=== PATIENT | male | born 2000 | race Asian ===

== ENCOUNTER → 2023-08-01 09:53 | Outpatient (CLI) | payer OTHER, SELFPAY ==
[2023-08-01 11:33] LABS: Add Manual Diff / Slide Review NO; Basophils Absolute Auto 100 /uL (0-100); Basophils Percent Auto 0.7 % (0-2); Eosinophils Absolute Auto 300 /uL (0-450); Eosinophils Percent Auto 2.1 % (2-4); Hematocrit 45.5 % (41-53); Hemoglobin 15.4 g/dL (13.5-17.5); Lymphocytes Absolute Auto 3000 /uL (1100-4500); Lymphocytes Percent Auto 24.3 % (25-40); Mean Corpuscular HGB Conc 33.8 % (30-36); Mean Corpuscular Hemoglobin 28.9 PG (26-34); Mean Corpuscular Volume 85.4 fL (80-100); Monocytes Absolute Auto 600 /uL (0-900); Monocytes Percent Auto 4.7 % (3-14); Neutrophils Absolute Auto 8500 /uL (1500-7000); Neutrophils Percent Auto 68.2 % (50-75); Platelet Count 334 X10^3/uL (150-400); Red Blood Cell Count 5.33 X10^6/uL (4.5-5.9); Red Cell Distribution Width 13.5 % (11.6-14.8); White Blood Cell Count 12.5 X10^3/uL (4.5-11.0)
[2023-08-01 11:44] LABS: Hemoglobin A1C% w Est Avg Glu 5.6 % (4.0-6.0)
[2023-08-01 12:15] LABS: Alanine Aminotransferase 51 IU/L (<50); Albumin 4.8 g/dL (3.5-5.0); Albumin Globulin Ratio 1.1 (1.0-2.8); Alkaline Phosphatase 77 U/L (38-126); Aspartate Aminotransferase 46 IU/L (17-59); BUN Creatinine Ratio 20.2 (6-22); Bilirubin Total 0.7 mg/dL (0.2-1.3); Blood Urea Nitrogen 19 mg/dL (9-20); Calcium 9.3 mg/dL (8.4-10.2); Carbon Dioxide 30 mmol/L (22-32); Chloride 101 mmol/L (98-107); Cholesterol 236 mg/dL (140-199); Estimated Glomerular Filt Rate > 60 mL/min (>60); Globulin 4.4 g/dL (1.7-4.1); Glucose 89 mg/dL (70-100); HDL Cholesterol 51 mg/dL (40-60); HEMOLYSIS < 15 (0-50); LDL Cholesterol Calculated 149 mg/dL (<100); Potassium 4.2 mmol/L (3.4-5.1); Sodium 140 mmol/L (137-145); Total Protein 9.2 g/dL (6.3-8.2); Triglycerides 180 mg/dL (35-150); Uric Acid 10.6 mg/dL (3.5-8.5)
[2023-08-01 12:47] LABS: TSH w/ Reflex to FT4 1.34 uIU/mL (0.47-4.68)
== END ==
PROVIDERS: PCP Family Medicine; Referring Provider Family Medicine; Visit Provider Family Medicine
DX: I10 Essential (primary) hypertension (principal); F41.9 Anxiety disorder, unspecified; Z82.69 Family history of other diseases of the musculoskeletal system and connective tissue
CPT/HCPCS: 36415; 80053; 80061; 83036; 84443; 84550; 85025

== ENCOUNTER → 2023-08-21 15:24 | Outpatient (CLI) | payer OTHER, SELFPAY ==
--- NOTE | 2023-08-21 15:25 | DI.RAD.S_ITS ---
PROCEDURE: XR CHEST 2V INDICATIONS: eval cough/chest TECHNIQUE: 2 views of the chest were acquired. COMPARISON: None. FINDINGS: Surgical changes and devices: None. Lungs and pleura: Lungs are clear. No pleural effusions or pneumothorax. Mediastinum: Mediastinal contours are normal. Heart size is normal. Bones and chest wall: No suspicious bony abnormalities. Soft tissues appear unremarkable. IMPRESSION: No acute cardiopulmonary abnormality is seen. Dictated by: Joey Jain M.D. on 08/21/2023 at 16:00 Approved by: Joey Jain M.D. on 08/21/2023 at 16:01
== END ==
PROVIDERS: PCP Family Medicine; Referring Provider Family Medicine; Visit Provider Family Medicine
DX: R05.3 Chronic cough (principal)
CPT/HCPCS: 71046

== ENCOUNTER → 2024-04-18 11:48 | Outpatient (CLI) | payer OTHER, SELFPAY ==
[2024-04-18 12:39] LABS: Hemoglobin A1C% w Est Avg Glu 5.7 % (4.0-6.0)
[2024-04-18 12:58] LABS: Alanine Aminotransferase 120 IU/L (<50); Albumin 4.5 g/dL (3.5-5.0); Albumin Globulin Ratio 1.1 (1.0-2.8); Alkaline Phosphatase 107 U/L (38-126); Aspartate Aminotransferase 114 IU/L (17-59); BUN Creatinine Ratio 17.4 (6-22); Bilirubin Total 0.4 mg/dL (0.2-1.3); Blood Urea Nitrogen 15 mg/dL (9-20); Calcium 9.7 mg/dL (8.4-10.2); Carbon Dioxide 29 mmol/L (22-32); Chloride 98 mmol/L (98-107); Cholesterol 229 mg/dL (140-199); Estimated Glomerular Filt Rate > 60 mL/min (>60); Globulin 4.1 g/dL (1.7-4.1); Glucose 193 mg/dL (70-100); HDL Cholesterol 44 mg/dL (40-60); HEMOLYSIS < 15 (0-50); LDL Cholesterol Calculated 146 mg/dL (<100); Potassium 4.3 mmol/L (3.4-5.1); Sodium 136 mmol/L (137-145); Total Protein 8.6 g/dL (6.3-8.2); Triglycerides 194 mg/dL (35-150); Uric Acid 8.6 mg/dL (3.5-8.5)
[2024-04-18 13:29] LABS: Cortisol Random 9.25 ug/dL
[2024-04-18 13:32] LABS: TSH w/ Reflex to FT4 2.71 uIU/mL (0.47-4.68)
[2024-04-28 10:39] LABS: Percent Free Testosterone 2.39 % (1.50-4.20); Testosterone Free 2.99 ng/dL (5.00-21.00)
== END ==
PROVIDERS: PCP Family Medicine; Referring Provider Family Medicine; Visit Provider Family Medicine
DX: F32.9 Major depressive disorder, single episode, unspecified (principal); E78.5 Hyperlipidemia, unspecified; M10.9 Gout, unspecified; I10 Essential (primary) hypertension; Z83.3 Family history of diabetes mellitus; E66.9 Obesity, unspecified; G47.30 Sleep apnea, unspecified; R00.0 Tachycardia, unspecified
CPT/HCPCS: 36415; 80053; 80061; 82533; 83036; 83835; 84402; 84403; 84443; 84550

== ENCOUNTER → 2024-04-21 08:36 | Outpatient (CLI) | payer OTHER, SELFPAY | PROVIDERS: PCP Family Medicine; Referring Provider Family Medicine; Visit Provider Family Medicine | DX: E66.9 Obesity, unspecified (principal); G47.30 Sleep apnea, unspecified; R00.0 Tachycardia, unspecified; I10 Essential (primary) hypertension; M10.9 Gout, unspecified | CPT/HCPCS: 83835 ==

== ENCOUNTER → 2024-05-08 13:19 | Outpatient (CLI) | payer OTHER, SELFPAY ==
--- NOTE | 2024-05-08 13:21 | DI.MRI.S_ITS ---
PROCEDURE: MR ABDOMEN ADRENAL PROTOCOL INDICATIONS: Obesity, tachycardia, low testosterone, hypertension TECHNIQUE: Coronal HASTE, axial 2-D FLASH in- and [id number] with subtractions from the hepatic dome to the iliac crests. COMPARISON: None. FINDINGS: Image quality: Diagnostic. Adrenal Glands: No adrenal nodules. OTHER: Lung bases: Unremarkable. Liver: No solid mass. Hepatic steatosis. Gallbladder: No gallstones or wall thickening. Biliary ducts: No biliary dilation. Pancreas: No ductal dilation. Spleen: Mild splenomegaly measuring 13.8 cm. Kidneys and Ureters: No hydronephrosis. No solid mass. No complex renal cystic lesion which requires follow up. Stomach and Bowel: Normal colonic caliber, without significant wall thickening. Normal appendix. Peritoneum: No abnormal intraperitoneal fluid. No free air. Ventral Wall: No hernia. Abdominal Nodes: No retroperitoneal or mesenteric adenopathy by size criteria. Vessels: Aorta and inferior vena cava are normal in size. Pelvis: No pelvic mass. Bones: No aggressive osseous abnormality. IMPRESSION: 1. No adrenal nodule. 2. Hepatic steatosis. 3. No biliary or pancreatic ductal dilatation. No free fluid. Dictated by: Clarence Aguilar M.D. on 05/08/2024 at 21:44 Approved by: Clarence Aguilar M.D. on 05/08/2024 at 21:48
== END ==
PROVIDERS: PCP Family Medicine; Referring Provider Family Medicine; Visit Provider Family Medicine
DX: K76.0 Fatty (change of) liver, not elsewhere classified (principal); R16.1 Splenomegaly, not elsewhere classified; E66.813 Obesity, class 3; E66.01 Morbid (severe) obesity due to excess calories; Z68.43 Body mass index [BMI] 50.0-59.9, adult; R00.0 Tachycardia, unspecified; I10 Essential (primary) hypertension; R79.89 Other specified abnormal findings of blood chemistry; R40.0 Somnolence; F51.01 Primary insomnia
CPT/HCPCS: 74181

== ENCOUNTER → 2024-06-04 07:27 | Outpatient (CLI) | payer OTHER, SELFPAY ==
--- NOTE | 2024-06-04 07:28 | DI.ECHO.S_ITS ---
[facility] : : [address] : : [place] : : [id number] : : Phone: [phone] Echocardiogram Report + + :Name: CARLOS ENRIQUE AGUIRRE Study Date: 06/04/2024 Height: 64 in : :Hospital ReadingLocation: Weight: 323 lb : : Gender: Male BSA: 2.4 m2 : :: 2000 Age: 24 yrs BP: 180/116 mmHg: :Reason For Study: SINUS TACHYCARDIA : :Ordering Physician: DOE, : :TERENCE Performed By: Truman Deutsch : :Referring: TERENCE IYER : + + Interpretation Summary Technically difficult study due patient's body habitus. 1) Normal left ventricular thickness, size, wall motion, and systolic function (EF 60-65%). 2) Normal right ventricular size and function. 3) No significant valvular abnormalities. 4) No prior Echo available for comparison. Procedure: A two-dimensional transthoracic echocardiogram with color flow and Doppler was performed. The study quality was technically difficult. There is no prior echocardiogram noted for this patient. The patient was in sinus tachycardia with heart rates between 89-107 bpm during the exam. Left Ventricle: The left ventricle is normal in size and wall thickness. There is no ventricular septal defect visualized. The ejection fraction is estimated to be 60-65%. There are no focal wall motion abnormalities. Diastolic parameters suggest probable normal left ventricular diastolic function and normal filling pressures. Right Ventricle: The right ventricle is normal in size and function. Atria: The left atrial size is normal. Right atrial size is normal. There is no Doppler evidence for an interatrial shunt. Mitral Valve: The mitral valve leaflets appear normal. There is no evidence of stenosis, fluttering, or prolapse. There is no mitral regurgitation noted. Aortic Valve: The aortic valve is grossly normal. The aortic valve opens well. There is no aortic valve stenosis. No aortic regurgitation is present. Tricuspid Valve: The tricuspid valve is normal in structure and function. No tricuspid regurgitation. Pulmonary artery pressures cannot be estimated because of the lack of a measurable TR jet velocity. Pulmonic Valve: The pulmonic valve is not well seen, but is grossly normal. There is trace pulmonic regurgitation. Great Vessels: The aortic root is normal size. The dimensions of the ascending aorta are normal. The pulmonary artery is not well visualized, but is probably normal size. The IVC is of normal diameter and collapses greater than 50% with a sniff. This suggests a low right atrial pressure of 3 mm Hg. Pericardium/ Pleura There is no pericardial effusion. MMode/2D Measurements & Calculations LVIDd: 4.9 cm LVOT diam: 2.2 cm LVIDs: 3.0 cm Ao root diam: 3.1 cm FS: 38.3 % asc Aorta Diam: 3.1 cm EPSS: 0.55 cm Ao Arch Diam (Prox Trans): 1.7 cm IVSd: 1.2 cm LVPWd: 1.1 cm LV muñoz. diameter/BSA (cm/m^2): 2.0 LV sys. diameter/BSA (cm/m^2): 1.2 LA A2 area: 20.8 cm2 RA long axis: 4.1 cm LA A4 area: 17.6 cm2 RA area: 11.8 cm2 LA length (vol): 5.5 cm RA vol: 29.2 ml LA vol: 56.1 ml RA : 12.2 ml/m2 LA vol index: 23.4 ml/m2 IVC diam: 1.0 cm RVD1 (basal): 3.8 cm RVD2 (mid): 2.8 cm TAPSE: 1.9 cm Doppler Measurements & Calculations Ao V2 max: 153.0 cm/sec LVOT Max Jeffrey: 120.6 cm/sec Ao V2 mean: 105.8 cm/sec LV V1 max P.8 mmHg Ao max P.4 mmHg LV V1 VTI: 24.0 cm Ao mean P.0 mmHg DARÍO(I,D): 3.1 cm2 Ao V2 VTI: 29.4 cm DARÍO(V,D): 3.0 cm2 sev ratio: 0.82 DARÍO indexed to BSA (cm^2/m^2): 1.3 MV E max jeffrey: 118.5 cm/sec PA V2 max: 135.6 cm/sec MV A max jeffrey: 61.0 cm/sec PA V2 mean: 97.7 cm/sec MV E/A: 1.9 PA mean P.2 mmHg Med Peak E' Jeffrey: 9.5 cm/sec PA pr(Accel): 65.3 mmHg E/E' med: 12.5 Lat Peak E' Jeffrey: 11.7 cm/sec E/E' lat: 10.1 E/e' average: 11.3 MV dec time: 0.19 sec SV(LVOT): 90.2 ml Reading Physician:12:50 PM
== END ==
PROVIDERS: PCP Family Medicine; Referring Provider Internal Medicine Cardiovascular Disease; Visit Provider Internal Medicine Cardiovascular Disease
DX: R00.0 Tachycardia, unspecified (principal)
CPT/HCPCS: 93306

== ENCOUNTER → 2024-09-02 07:24 | Outpatient (CLI) | payer OTHER, SELFPAY ==
--- NOTE | 2024-09-02 08:01 | DIAB.MNT ---
Initial Diabetes Medical Nutrition Therapy Assessment Name: Hermelindo Wharton Date: 09/02/24 Time: 8-850a Dx: Type II Diabetes Provider: Binh Preferred Learning Style: Watching, reading, doing Hermelindo presents for initial Dm visit. Endorses FH of Dm with parternal hx (dad, aunt, both grandparents). No recent hgA1c >6.5%. Last labs were reportedly not fasting. Sees Dr. Iyer in cardiology, who seems to be concerned about tachycardia per report. Taking tirzepatide, which has reduced his appetite. Less emotional eating. Sees therapy, which is also helpful. Weight loss has plateaued a bit per report. Wants some nutrition education and support. No SE with GLP1 although does report some fatigue with initial day/injection. Takes injection Sunday afternoons to avoid fatigue at work. Started GLP1 in April 2024. Reports limited ability to prepare foods at this time due to living in his car and at a friend's home. Reports concerns for his job to be dissolved by end of the year. has concerns about losing healthcare coverage. Sometimes goes to the grocery store for a banana. States he would like to reduce soda intake, but does not like most sf beverages and tends to gag on water per report. Sometimes has a hard time accessing enough of the sf peach tea, so substitutes soda. Diet Recall: soda or sf tea 1230p: bagel sandwich or toast with cream cheese and butter x2 (at [facility]) 5-9p: Nothing OR 20 chicken nuggets +/- large shore HS: nothing or candy No water soda 16-24oz diet peach tea x 32oz Tries to avoid eating after 8p Some increased reflux with GLP1. Could be exacerbated by higher fat intake foods. Anthropometrics: Ht: 64 Wt: 288# reported (last PCP 302#) 08/2024 Physical Activity: Tennis or pickle ball 1x per week, walk 3x per week for 1 hour Self-Monitoring Blood Glucose: None Diabetes Medications: 7.5mg Tirzepatide Pertinent Labs: HgA1c: 5.7% 04/2024 Past Medical History: (Last Reviewed 08/11/24 @ 13:17 by Heladio Purcell DO) Bronchitis Daytime somnolence Family history of type 2 diabetes mellitus HENRIETTA (generalized anxiety disorder) Gout Hyperlipidemia Hypertension Insomnia Left Achilles tendinitis Low testosterone in male Major depression Obesity Sleep apnea Tachycardia Trauma and stressor-related disorder Well adult exam Nutrition Rx: Plate Method Nutrition Diagnosis: - Excessive CHO intake r/t stage of change preparation and access to beverages he enjoys aeb pt report of beverage choices and diet recall - Limited access to nutrition related supplies r/t living situation not conducive to cooking aeb pt report Intervention: This participant was very receptive. Provided appropriate educational handouts. Discussed the following topics: Completed intake assessment. Discussed barriers to care. HgA1c as a screening and diagnostic tool Beverage recs and eating out strategies Recommended servings for carbohydrates at meals and snacks Ways to reduce reflux Brainstormed appropriate meal plan based on food preferences and abilities Role of physical activity State health insurance access/resources prn Created SMART goals for patient self-care and success. Goals: Reduce soda intake Choose food from grocery store for dinner If eating fast food, choose small shore or skip shore Consider discussion about reflux tx with provider/provider team Follow-up: [facility] follow-up in 3-4 weeks Jimena Lopez RDN, YRN Certified Diabetes Care and Pack Changer P: [phone] Thank you for this referral
== END ==
LOC: DIET 07:25
PROVIDERS: PCP Family Medicine; Referring Provider Family Medicine
DX: E11.9 Type 2 diabetes mellitus without complications (principal)
CPT/HCPCS: 97802

== ENCOUNTER → 2024-10-24 09:21 | Outpatient (CLI) | payer OTHER, SELFPAY ==
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
== END ==
LOC: DIET 09:21
PROVIDERS: PCP Family Medicine; Referring Provider Family Medicine
DX: E11.9 Type 2 diabetes mellitus without complications (principal); Z79.85 Long-term (current) use of injectable non-insulin antidiabetic drugs; Z71.3 Dietary counseling and surveillance
CPT/HCPCS: 97803

== ENCOUNTER → 2024-11-10 11:08 | Outpatient (CLI) | payer OTHER, SELFPAY ==
[2024-11-10 12:17] LABS: Add Manual Diff / Slide Review NO; Hematocrit 43.9 % (41-53); Hemoglobin 14.7 g/dL (13.5-17.5); Lymphocytes Absolute Auto 3200 /uL (1100-4500); Mean Corpuscular HGB Conc 33.4 % (30-36); Mean Corpuscular Hemoglobin 28.3 PG (26-34); Mean Corpuscular Volume 84.5 fL (80-100); Platelet Count 300 X10^3/uL (150-400)
[2024-11-10 12:27] LABS: Hemoglobin A1C% w Est Avg Glu 5.1 % (4.0-6.0)
[2024-11-10 12:39] LABS: Alanine Aminotransferase 35 IU/L (<50); Albumin 4.8 g/dL (3.5-5.0); Albumin Globulin Ratio 1.2 (1.0-2.8); Alkaline Phosphatase 93 U/L (38-126); Blood Urea Nitrogen 12 mg/dL (9-20); Calcium 9.6 mg/dL (8.4-10.2); Carbon Dioxide 28 mmol/L (22-32); Chloride 100 mmol/L (98-107); Cholesterol 188 mg/dL (140-199); Estimated Glomerular Filt Rate > 60 mL/min (>60); Globulin 4.1 g/dL (1.7-4.1); Glucose 88 mg/dL (70-99); HDL Cholesterol 48 mg/dL (40-60); HEMOLYSIS < 15 (0-50); Potassium 4.8 mmol/L (3.4-5.1); Sodium 139 mmol/L (137-145); Total Protein 8.9 g/dL (6.3-8.2); Triglycerides 93 mg/dL (35-150); Uric Acid 8.2 mg/dL (3.5-8.5)
[2024-11-10 13:02] LABS: TSH w/ Reflex to FT4 1.68 uIU/mL (0.47-4.68)
== END ==
PROVIDERS: PCP Family Medicine; Referring Provider Family Medicine; Visit Provider Family Medicine
DX: E66.813 Obesity, class 3 (principal); E66.01 Morbid (severe) obesity due to excess calories; Z68.43 Body mass index [BMI] 50.0-59.9, adult; E78.00 Pure hypercholesterolemia, unspecified; F33.2 Major depressive disorder, recurrent severe without psychotic features; M1A.09X0 Idiopathic chronic gout, multiple sites, without tophus (tophi); G47.33 Obstructive sleep apnea (adult) (pediatric)
CPT/HCPCS: 36415; 80053; 80061; 83036; 84402; 84403; 84443; 84550; 85025

== ENCOUNTER → 2024-11-28 08:39 | Outpatient (CLI) | payer OTHER, SELFPAY ==
--- NOTE | 2024-11-28 08:58 | DIAB.MNTFU ---
Follow-up Diabetes Medical Nutrition Therapy Assessment Name: Hermelindo Wharton Date: 11/30/24 Time: 9930a Dx: Type II Diabetes Hermelindo presents for follow-up Dm visit. Continues on Tirzepatide 7.5mg but plans to increase next week to 10mg for weight loss. Taking this via Zepbound coupon program. Issues with rx at pharmacy labeling Tirzepatide as Mounjaro vs Zepbound again. He plans to contact pharmacy regarding this. Recent moved in with his partner. States she is supportive and positive about eating healthy. Endorses smaller more frequent portions. -32# over 3 months and reported 50# loss since starting GLP1. Plans for ENT surgery to help with ABIMAEL. Endorses some reduced stress now with work and living situation. Diet Recall: 630: ww toast and jam 11-12: cheese or yogurt OR 12-2p: bread sticks OR chicken/fish strips 5-6p: ravioli with turkey OR 1/2 8 personal pizza 6-7pm: grapes or popcorn water 16.9oz soda reduced to only when eating fast food x 1/3-1/2 serving size diet peach tea Anthropometrics: Ht: 64 Wt: 270# 11/2024 273# reported 10/2024 290# PCP 09/2024 288# reported (last PCP 302#) 08/2024 Physical Activity: Reduced recently. Weather impacted tennis or pickle ball 1x per week, walk 5x per week for 1 hour. Self-Monitoring Blood Glucose: None Diabetes Medications: 7.5mg Tirzepatide --- 10mg next week Pertinent Labs: HgA1c: 5.7% 04/2024 5.1% 11/2024 Past Medical History: (Last Reviewed 08/11/24 @ 13:17 by Heladio Purcell DO) Bronchitis Daytime somnolence Family history of type 2 diabetes mellitus HENRIETTA (generalized anxiety disorder) Gout Hyperlipidemia Hypertension Insomnia Left Achilles tendinitis Low testosterone in male Major depression Obesity Sleep apnea Tachycardia Trauma and stressor-related disorder Well adult exam Nutrition Rx: Plate Method Nutrition Diagnosis: - Excessive CHO intake r/t beverage choices and difficulty drinking plain water aeb pt report - in progress/improved - Limited access to nutrition related supplies r/t living situation not conducive to cooking aeb pt report- improved - Predicted excessive CHO intake r/t dinner and snack choices and meal timing aeb diet recall- new Intervention: This participant was very receptive. Provided appropriate educational handouts. Discussed the following topics: Increasing water intake Meal/snack timing Troubleshooting GLP1 with pharmacy Changes with living situation, stress, and ability to prepare foods Created SMART goals for patient self-care and success. Goals: Add 5pm snack (protein and/or fruit)- d/c Chat with therapist about water aversion- in progress Call pharmacy about making sure rx is correct for GLP1- continue Move HS snack to 8p- new Aim for 1.5-2 bottles of water per day- new Follow-up: [facility] POOL follow-up in 4-6 weeks Jimena Lopez RDN, YRN Certified Diabetes Care and Truck Spotter P: [phone] Thank you for this referral
== END ==
LOC: DIET 08:40
PROVIDERS: PCP Family Medicine; Referring Provider Family Medicine
DX: E11.9 Type 2 diabetes mellitus without complications (principal); Z71.3 Dietary counseling and surveillance; Z79.85 Long-term (current) use of injectable non-insulin antidiabetic drugs
CPT/HCPCS: 97803

== ENCOUNTER → 2025-01-09 12:41 | Outpatient (CLI) | payer OTHER, SELFPAY ==
--- NOTE | 2025-02-03 17:23 | DIAB.MNTFU ---
Follow-up Diabetes Medical Nutrition Therapy Assessment Name: Hermelindo Wharton Date: 01/09/25 Time: 1-145p Dx: Type II Diabetes Hermelindo presents for follow-up Dm visit. Increased Tirzepatide to 10mg. Taking this via Zepbound coupon program. Endorses issues with excessive somnolence. Not driving due to this. Falling asleep at work. Impacting relationship. At the time of this visit, RD messaged provider staff to see if he can come in sooner for follow-up due to impact to his work and personal life. Avoiding soda. Drinking sf tea and water (16oz). Meal timing is impacted by sleep and schedule with partner and her child. Sometimes skipping meals. Dinner much later recently between 7-11p Feels his weight is stuck at plateau. Anthropometrics: Ht: 64 Wt: 268# reported 01/2025 270# 11/2024 273# reported 10/2024 290# PCP 09/2024 288# reported (last PCP 302#) 08/2024 Physical Activity: Tennis on weekends. Walking at lunch 3 days per week. Self-Monitoring Blood Glucose: None Diabetes Medications: 10mg Tirzepatide Pertinent Labs: HgA1c: 5.7% 04/2024 5.1% 11/2024 Past Medical History: (Last Reviewed 08/11/24 @ 13:17 by Heladio Purcell DO) Bronchitis Daytime somnolence Family history of type 2 diabetes mellitus HENRIETTA (generalized anxiety disorder) Gout Hyperlipidemia Hypertension Insomnia Left Achilles tendinitis Low testosterone in male Major depression Obesity Sleep apnea Tachycardia Trauma and stressor-related disorder Well adult exam Nutrition Rx: Plate Method Nutrition Diagnosis: - inconsistent energy intake r/t sleep and scheduling issues aeb pt report Intervention: This participant was very receptive. Provided appropriate educational handouts. Discussed the following topics: Meal/snack timing Impact solmnolence is having on health, relationship, and work Beverage intake and choices Created SMART goals for patient self-care and success. Goals: Call pharmacy about making sure rx is correct for GLP1- continue Move HS snack to 8p- not met Aim for 1.5-2 bottles of water per day- in progress Eat q 3 hours- new Chat with PCP about somnolence- new Follow-up: [facility] POOL follow-up in 3-4 weeks Jimena Lopez RDN, YRN Certified Diabetes Care and Laundromat Worker P: [phone] Thank you for this referral
== END ==
LOC: DIET 12:41
PROVIDERS: PCP Family Medicine; Referring Provider Family Medicine
DX: E11.9 Type 2 diabetes mellitus without complications (principal); Z79.85 Long-term (current) use of injectable non-insulin antidiabetic drugs; Z71.3 Dietary counseling and surveillance
CPT/HCPCS: 97803